=== PATIENT | female | born 1990 | race Caucasian/White ===

== ENCOUNTER 2019-03-04 10:05 | Inpatient (IN) ==
[2019-03-04] MEDS ORDERED: DINOPROSTONE 10 MG INSERT PV ONE (20:23)
[2019-03-04] MEDS ORDERED: OXYTOCIN 30 UNITS/500 ML BAG IV PRN (20:26)
[2019-03-04 21:13] LABS: Hematocrit (blood only) 39.3 % (37-47); Hemoglobin 13.2 g/dL (12.0-16.0); Mean Corpuscular Hemoglobin 31.4 pg (25-34); Mean Corpuscular Volume 93.6 fL (80-100); Mean Platelet Volume 10.5 fL (7.4-10.4); Platelet Count 289 K/uL (130-400); RDW Coefficient of Variation 12.8 % (11.5-14.5); White Blood Count 18.76 K/uL (4.8-10.8)
[2019-03-04] MEDS ORDERED: BUTORPHANOL TARTRATE 1 MG/ML VIAL IV PRN (21:13)
[2019-03-04 21:25] LABS: Mean Corpuscular Hgb Conc 33.6 g/dL (32-36)
[2019-03-05] MEDS ORDERED: miSOPROStoL 50 MCG TAB PO ONE (10:45)
[2019-03-05] MEDS: LACTATED RINGER'S 1,000 ML IV PRN ×3 (11:06→20:13)
[2019-03-05] MEDS ORDERED: OXYTOCIN 30 UNITS/500 ML BAG IV PRN (17:12)
[2019-03-05] MEDS ORDERED: fentaNYL citrate 100 MCG/2 ML VIAL ONE (21:41)
[2019-03-05] MEDS ORDERED: fentaNYL 2MCG/ML ROPIV 1.25MG/ML 100 ML BAG EPI ONE (21:42)
[2019-03-05] MEDS ORDERED: BUPIVACAINE 0.25% 30 ML VIAL ONE (21:42)
[2019-03-05] MEDS ORDERED: ePHEDrine sulfate 50 MG/ML AMP ONE (21:42)
--- NOTE | 2019-03-05 21:59 | Anesthesiology Consultation ---
Date of Service March 05, 2019 Assessment & Plan Chart Review Chart Review: Acceptable Risk for Surgery, Patient NOT seen in Pre Admission Testing and Acceptable Risk for Labor Epidural Consults Requested none ASA ASA3 Proposed Anesthesia Anesthesia Type: General, Labor Epidural and CSE Risk / Benefits Reviewed With: PT / POA / Parent / Guardian, Accepts Plan and Informed Consent Obtained History Height/Weight Height: 5 ft 5 in Weight: 121.109 kg Allergies Allergy/AdvReac Type Severity Reaction Status Date / Time No Known Allergies Verified 02/14/19 09:09 Medications Home Medications Medication Instructions Recorded Confirmed Last Taken PNV cmb#95-ferrous fumarate-FA 1 tab PO DAILY 02/14/19 03/04/19 03/04/19 [] Active Medications Generic Name Dose Route Start Last Admin Trade Name Freq PRN Reason Stop Dose Admin Lactated Ringer's 1,000 mls @ 125 mls/hr 03/04/19 20:26 03/05/19 21:40 Lr IV 03/06/19 20:25 999 mls/hr .Q8H PRN Infusion L&D Protocol Protocol Oxytocin 30 units in 500 mls @ 12 mls/hr 03/05/19 17:12 03/05/19 21:15 Pitocin IV 03/07/19 17:11 0.72 units/hr .Q24H PRN 12 mls/hr Labor Induction/Augmentation Titration Protocol 0.72 UNITS/HR NPO Date Last Intake of Fluids: 03/05/19 Time Last Intake of Fluids: 21:00 Date Last Intake of Solids: 03/05/19 Time Last Intake of Solids: 11:00 Past Medical History Medical History No known health problems Exercise / Class Metabolic Activity II 4-5 Yardwork/Stairs/Walk up hill Past Family History Family History Other Hypertension Past Surgical History Surgical History H/O wisdom tooth extraction History of tonsillectomy Past Anesthesia History No Hx of Anesthesia Complications and No Family Hx of Anesthesia Complications History of PONV No Hx of PONV and No Hx of Motion Sickness Social History Smoking Status: Former smoker tobacco type: cigarettes Smoking cigarettes per day: 4 Hx Alcohol Use: No Hx Substance Use: No substance use type: does not use Physical Exam Vital Signs Last Vital Signs Temp 36.6 C 03/05/19 21:15 Pulse 98 H 03/05/19 21:56 Resp 18 03/05/19 21:15 BP 138/84 03/05/19 18:58 Pulse Ox 96 03/05/19 21:56 Constitutional + morbidly obese ENMT Mouth: no dentition abnormality Thyromental Distance: < 3.5 Finger Breadths Mallampati Class: II Neck normal visual inspection and trachea midline; neck extension not limited Respiratory normal respiratory effort Auscultation: lungs clear to auscultation bilaterally Cardiovascular Rate/Rhythm: regular rate and regular rhythm Heart Sounds: no murmur Musculoskeletal Spine: lumbar spine normal to inspection; normal cervical ROM Neurologic moves all extremities Motor/Sensory: no sensory deficit Psychiatric Orientation: alert and oriented x 3 Testing Laboratory Results 03/04/19 21:05
[2019-03-05] MEDS ORDERED: NALOXONE HCL 1 MG in SODIUM CHLORIDE 0.9% 1000ML 1,000 ML IV PRN (22:28)
[2019-03-05] MEDS ORDERED: ONDANSETRON INJ 2 MG/ML 2 ML VIAL IV PRN (22:28)
[2019-03-05] MEDS ORDERED: PROMETHAZINE HCL 25 MG in SODIUM CHLORIDE 0.9% 50 ML IV PRN (22:28)
[2019-03-05] MEDS ORDERED: ePHEDrine sulfate 50 MG/ML AMP IV PRN (22:28)
[2019-03-05] MEDS ORDERED: fentaNYL 2MCG/ML ROPIV 1.25MG/ML 100 ML BAG EPI PRN (22:28)
[2019-03-05] MEDS ORDERED: NALBUPHINE HCL INJ 10 MG/ML AMP IV PRN (22:28)
[2019-03-05] MEDS ORDERED: DiphenhydrAMINE HCL 50 MG/ML VIAL IV PRN (22:28)
[2019-03-05] MEDS ORDERED: NALOXONE HCL 0.4 MG/1 ML VIAL/CARP IV PRN (22:28)
[2019-03-06] MEDS ORDERED: SUPERCREAM 0.870% 15 GM JAR EXT PRN (04:49)
[2019-03-06] MEDS ORDERED: HYDROCORTISONE ACETATE 25 MG SUPP PR PRN (04:49)
[2019-03-06] MEDS ORDERED: bisacodyL 10 MG SUPP PR PRN (04:49)
[2019-03-06] MEDS ORDERED: ACETAMINOPHEN 325 MG TAB PO PRN (04:49)
[2019-03-06] MEDS ORDERED: OXYTOCIN 30 UNITS/500 ML BAG IV PRN (04:49)
[2019-03-06] MEDS ORDERED: BENZOCAINE 20% AER SPR 82.5 GM CAN EXT PRN (04:49)
[2019-03-06] MEDS ORDERED: DIPHTHERIA/TETANUS/PERTUSSIS 0.5 ML SYR/VIAL IM ONE (04:49)
[2019-03-06] MEDS ORDERED: ACETAMINOPHEN W/CODEINE #3 1 TAB PO PRN (04:49)
[2019-03-06] MEDS ORDERED: METHYLERGONOVINE MALEATE 0.2 MG/ML AMP IM ONE (04:49)
[2019-03-06] MEDS ORDERED: OXYCODONE/ACETAMINOPHEN 5mg/325mg TAB PO PRN (04:49)
--- NOTE | 2019-03-06 07:02 | Delivery Summary ---
DATE OF OPERATION: 03/06/2019 Mrs. Verduzco is a 1, para 1. Her has been complicated by toxemia, which started about 35 weeks' gestation. Her blood type is B positive. She is group beta strep negative. She started to develop elevated blood pressure. She was taken off of her work, placed at bed rest. She responded nicely, and as long as she had bed rest and decreased activity, her proteinuria resolved and her blood pressures ran in the normal range. We elected to induce her labor at 38 weeks due to her diagnosis of toxemia. She was brought in, given a Cervidil tape, then 1 dose of p.o. Cytotec and then eventually she was switched to IV Pitocin. Membranes were ruptured surgically. Fluid was clear. She had an epidural at about 5 cm. She went to full dilatation, and under 20 minutes, pushed out a live female infant via direct occiput anterior position over an intact perineum. Apgars were 8 and 9, respectively. Cord was short, was clamped and cut by the father. Cord blood was taken. With IV Pitocin running, the placenta was removed intact. Inspection of the perineum revealed a superficial laceration at 6 o'clock and a very small laceration at about 3 o'clock. The 3 o'clock laceration was repaired with a [id number] suture of chromic catgut and the 6 o'clock was repaired with a running 3-0 chromic. Following this, vaginal examination revealed no hematoma formation. She was also given a shot of Methergine. Estimated blood loss 100 mL . Placenta looked small, was sent for exam. I attest to the content of the Intraoperative Record and any orders documented therein. Any exception s are noted below.
--- NOTE | 2019-03-06 07:17 | Anesthesia Procedure Note ---
Date of Service March 06, 2019 Anesthesia Post Epidural Note Vital Signs Vital Signs: Temp Pulse Resp BP Pulse Ox 37.5 C 76 18 132/70 98 03/06/19 06:40 03/06/19 06:48 03/06/19 06:40 03/06/19 06:48 03/06/19 04:26 Notes Mental Status: alert / awake / arousable and participated in evaluation Patient Amnestic to Procedure: Yes Nausea / Vomiting: adequately controlled Pain: adequately controlled Airway Patency, RR, SpO2: stable & adequate BP & HR: stable & adequate Hydration State: stable & adequate Anesthetic Complications: no major complications apparent and Pt Satisfied with anesthetic care
[2019-03-06] MEDS: IBUPROFEN 600 MG TAB PO PRN (17:11)
[2019-03-06] MEDS: DOCUSATE SODIUM 100 MG CAP PO SCH (21:30)
[2019-03-07] MEDS: IBUPROFEN 600 MG TAB PO PRN ×2 (01:06→08:25)
[2019-03-07 07:12] LABS: Hematocrit (blood only) 37.1 % (37-47); Hemoglobin 12.5 g/dL (12.0-16.0); Mean Corpuscular Hemoglobin 31.5 pg (25-34); Mean Corpuscular Hgb Conc 33.7 g/dL (32-36); Mean Corpuscular Volume 93.5 fL (80-100); Mean Platelet Volume 10.5 fL (7.4-10.4); Platelet Count 266 K/uL (130-400); RDW Coefficient of Variation 13.1 % (11.5-14.5); RDW Standard Deviation 45.1 fL (36.4-46.3); Red Blood Count 3.97 M/uL (4.2-5.4); White Blood Count 13.14 K/uL (4.8-10.8)
[2019-03-07] MEDS: PRENATAL VITAMIN 1 TAB PO SCH (08:24)
[2019-03-07] MEDS: FERROUS SULFATE 325 MG TAB PO SCH (08:24)
[2019-03-07] MEDS: DOCUSATE SODIUM 100 MG CAP PO SCH ×2 (08:25→20:27)
--- NOTE | 2019-03-07 09:21 | Obstetrical Progress Note ---
Date of Service March 07, 2019 Physical Exam Physical Exam: abdomen soft and non tender vaginal bleeding scant hgb 12.5 no calf tenderness ambulating well Results & Data Vital Signs (Past 12 Hours) Vital Signs Temp Pulse Resp BP Pulse Ox 03/07/19 04:30 36.6 C 74 17 133/79 97 03/07/19 00:50 36.7 C 81 16 127/78 96
[2019-03-07] MEDS ORDERED: bisacodyL 5 MG TABEC PO SCH (20:00)
[2019-03-08 07:05] LABS: Hematocrit (blood only) 38.1 % (37-47)
[2019-03-08] MEDS: FERROUS SULFATE 325 MG TAB PO SCH (10:33)
[2019-03-08] MEDS: PRENATAL VITAMIN 1 TAB PO SCH (10:33)
[2019-03-08] MEDS: DOCUSATE SODIUM 100 MG CAP PO SCH (10:33)
--- NOTE | 2019-03-08 11:13 | Obstetrical Progress Note ---
Date of Service March 08, 2019 Physical Exam Physical Exam: abdomen soft and non tender ambulating well no calf tenderness vaginal bleeding scant hgb 13.0 Results & Data Vital Signs (Past 12 Hours) Vital Signs Temp Pulse Resp BP BP 03/08/19 08:30 36.9 C 91 H 20 125/83 03/08/19 00:30 36.6 C 84 18 122/81
== END 2019-03-08 12:30 | disposition home or self-care (01) | DRG 807 ==
LOC: 4S1 19:08 → 4S2 03-06 08:46

== ENCOUNTER 2022-05-23 07:52 | Inpatient (IN) ==
[2022-05-23] MEDS ORDERED: miSOPROStoL 50 MCG TAB PO ONE ×2 (08:56→13:26)
[2022-05-23] MEDS ORDERED: PENICILLIN G POTASSIUM 6 MU in DEXTROSE 5% 250 ML IV STA (08:56)
[2022-05-23] MEDS ORDERED: LIDOCAINE 1% LOCAL 20 ML VIAL INFIL PRN (08:56)
[2022-05-23 09:25] LABS: Hematocrit (blood only) 38.9 % (37.0-47.0); Hemoglobin 13.4 g/dl (12.0-16.0); Mean Corpuscular Hemoglobin 30.4 pg (25.0-34.0); Mean Corpuscular Hgb Conc 34.4 g/dL (32.0-36.0); Mean Corpuscular Volume 88.2 fL (80.0-100.0); Mean Platelet Volume 10.5 fL (9.4-12.4); Platelet Count 241 K/uL (130-400); RDW Coefficient of Variation 13.1 % (11.5-14.5); RDW Standard Deviation 41.9 fL (36.4-46.3); Red Blood Count 4.41 M/uL (4.20-5.40)
[2022-05-23] MEDS: LACTATED RINGER'S 1,000 ML IV PRN ×2 (09:48→21:17)
[2022-05-23] MEDS: PENICILLIN G POTASSIUM 3 MU in DEXTROSE 5% 100 ML IV PRN ×3 (13:44→22:03)
[2022-05-23] MEDS ORDERED: OXYTOCIN 30 UNITS/500 ML BAG IV PRN (21:01)
[2022-05-23] MEDS ORDERED: ePHEDrine sulfate 50 MG/ML AMP ONE (23:26)
[2022-05-23] MEDS ORDERED: fentaNYL citrate PF 100 MCG/2 ML VIAL ONE (23:26)
[2022-05-23] MEDS ORDERED: fentaNYL 2MCG/ML ROPIVACAINE 1.25MG/ML 100 ML BAG EPI ONE (23:27)
[2022-05-23] MEDS ORDERED: LIDOCAINE 2%/EPINEPHRINE 1:200,000 20 ML PF ONE (23:27)
[2022-05-23] MEDS ORDERED: BUPIVACAINE 0.25% PF 30 ML VIAL ONE (23:27)
[2022-05-23] MEDS ORDERED: SODIUM CHLORIDE 0.9% PF INJ 10 ML VIAL ONE (23:27)
--- NOTE | 2022-05-24 00:19 | Anesthesiology Consultation ---
Date of Service May 24, 2022 Assessment & Plan Chart Review Chart Review: Patient NOT seen in Pre Admission Testing and Acceptable Risk for Labor Epidural Consults Requested none ASA ASA2 Proposed Anesthesia Anesthesia Type: Labor Epidural Risk / Benefits Reviewed With: PT / POA / Parent / Guardian, Accepts Plan and Informed Consent Obtained History Height/Weight Height: 5 ft 5 in Weight: 131.542 kg Allergies Allergy/AdvReac Type Severity Reaction Status Date / Time No Known Allergies Verified 05/23/22 08:29 Medications Home Medications Medication Instructions Recorded Confirmed Last Taken vit no.95-ferrous 1 tab PO DAILY 02/14/19 05/23/22 05/22/22 12:00 fumarate 28 mg-folic acid 800 mcg tablet () Active Medications Generic Name Dose Route Start Last Admin Trade Name Freq PRN Reason Stop Dose Admin Penicillin G Potassium 3 mu/ 106 mls @ 100 mls/hr 05/23/22 11:56 05/23/22 23:06 Dextrose IV 06/02/22 11:55 Infused Q4H PRN Infusion GBS(+) Until Delivery Lactated Ringer's 1,000 mls @ 125 mls/hr 05/23/22 08:56 05/23/22 23:50 Lr IV 05/25/22 08:55 125 mls/hr .Q8H PRN Infusion L&D Protocol Protocol Oxytocin 30 units in 500 mls @ 8 mls/hr 05/23/22 21:01 05/23/22 23:00 Pitocin IV 05/25/22 21:00 0.48 units/hr .Q24H PRN 8 mls/hr Labor Induction/Augmentation Titration Protocol 0.48 UNITS/HR Past Medical History Medical History No known health problems Exercise / Class Metabolic Activity II 4-5 Yardwork/Stairs/Walk up hill Past Family History Family History Other Hypertension Past Surgical History Surgical History H/O wisdom tooth extraction History of tonsillectomy Past Anesthesia History No Hx of Anesthesia Complications and No Family Hx of Anesthesia Complications History of PONV No Hx of PONV and No Hx of Motion Sickness Social History Smoking Status: Never smoker tobacco type: cigarettes Smoking cigarettes per day: 4 Hx Alcohol Use: No Hx Substance Use: No substance use type: does not use Physical Exam Vital Signs Last Vital Signs Temp 36.5 C 05/23/22 22:59 Pulse 86 05/24/22 00:18 Resp 18 05/23/22 22:59 BP 115/58 L 05/24/22 00:18 Pulse Ox 97 05/24/22 00:13 ENMT Mouth: no dentition abnormality Thyromental Distance: > or= 3.5 Finger Breadths Mallampati Class: II Neck normal visual inspection Respiratory normal respiratory effort Auscultation: lungs clear to auscultation bilaterally Cardiovascular Rate/Rhythm: regular rate and regular rhythm Psychiatric Orientation: alert Testing Laboratory Results 05/23/22 09:14 Blood Type B Positive 05/23/22 09:14 Antibody Screen NEGATIVE 05/23/22 09:14
[2022-05-24] MEDS ORDERED: NALOXONE HCL 0.4 MG/1 ML VIAL/CARP IV PRN (00:20)
[2022-05-24] MEDS ORDERED: NALBUPHINE HCL INJ 10 MG/ML AMP IV PRN (00:20)
[2022-05-24] MEDS ORDERED: diphenhydrAMINE 50 MG/ML VIAL IV PRN (00:20)
[2022-05-24] MEDS ORDERED: NALOXONE HCL 1 MG in SODIUM CHLORIDE 0.9% 1000ML 1,000 ML IV PRN (00:20)
[2022-05-24] MEDS ORDERED: ONDANSETRON INJ 2 MG/ML 2 ML VIAL IV PRN (00:20)
[2022-05-24] MEDS ORDERED: fentaNYL 2MCG/ML ROPIVACAINE 1.25MG/ML 100 ML BAG EPI PRN (00:20)
[2022-05-24] MEDS ORDERED: ePHEDrine sulfate 50 MG/ML AMP IV PRN (00:20)
[2022-05-24] MEDS: LACTATED RINGER'S 1,000 ML IV PRN (02:00)
[2022-05-24] MEDS: PENICILLIN G POTASSIUM 3 MU in DEXTROSE 5% 100 ML IV PRN (02:00)
[2022-05-24] MEDS: OXYTOCIN 30 UNITS/500 ML BAG IV PRN ×2 (04:40→06:49)
[2022-05-24] MEDS ORDERED: miSOPROStoL 200 MCG TAB ONE (04:45)
[2022-05-24] MEDS ORDERED: miSOPROStoL 200 MCG TAB PR ONE (04:50)
[2022-05-24] MEDS ORDERED: OXYTOCIN 30 UNITS/500 ML BAG IV PRN (04:50)
[2022-05-24] MEDS ORDERED: BENZOCAINE 20% AER SPR 82.5 GM CAN EXT PRN (04:50)
[2022-05-24] MEDS ORDERED: ACETAMINOPHEN 325 MG TAB PO PRN (04:50)
[2022-05-24] MEDS ORDERED: ACETAMINOPHEN W/CODEINE #3 1 TAB PO PRN (04:50)
[2022-05-24] MEDS ORDERED: DIPHTHERIA/TETANUS/PERTUSSIS 0.5mL SYR/VIAL (Age 7+yrs) IM ONE (04:50)
[2022-05-24] MEDS ORDERED: oxyCODONE/ACETAMINOPHEN 5mg/325mg TAB PO PRN (04:50)
[2022-05-24] MEDS ORDERED: HYDROCORTISONE ACETATE 25 MG SUPP PR PRN (04:50)
--- NOTE | 2022-05-24 05:58 | Operative Report (OR) ---
DELIVERY NOTE: She is 2, para 2, blood type is B positive. Group B strep positive. She had had hypertension with her first . She was placed on baby aspirin during this , wa s stopped at about 36 weeks. In the last week or two, she had elevation of blood pressure, which was managed by decreased activity. She was brought in for induction at 40 weeks. She was group B strep positive. She was immediately started on antibiotics and given p.o. Cytotec. P.o. Cytotec was later followed by IV Pitocin. Then she received an epidural for pain control. At about 5 to 6 cm, membrane s were ruptured surgically. Fluid was clear. Pitocin was continued to be advanced. She went to ful l dilatation, pushed out a live male infant with about 4 pushes, direct occiput anterior position ove r an intact perineum. Nuchal cord was reduced around the neck prior to delivery. Shoulders were del ivered without difficulty. Cord was allowed to pulse for 1 minute, then was clamped and cut by the f ather. Cord blood was taken. With IV Pitocin running, the placenta was removed intact. There was a little bit of moderate amount of bleeding following this. There was a small first-degree laceration of the perineum at 7 o'clock in the vaginal opening and this was repaired with a running 3-0 chromic and we used 800 mcg Cytotec rectally to help control the bleeding. Estimated blood loss was 200 mL. Apgars deferred to the nurses. Job ID: [id number]
--- NOTE | 2022-05-24 07:49 | Anesthesia Procedure Note ---
Date of Service May 24, 2022 Anesthesia Post Epidural Note Vital Signs Vital Signs: Temp Pulse Resp BP Pulse Ox 36.8 C 85 18 130/69 96 05/24/22 07:00 05/24/22 07:30 05/24/22 07:00 05/24/22 07:30 05/24/22 04:58 Notes Mental Status: alert / awake / arousable and participated in evaluation Nausea / Vomiting: adequately controlled Pain: adequately controlled Airway Patency, RR, SpO2: stable & adequate BP & HR: stable & adequate Hydration State: stable & adequate Neuraxial Anesthesia: was administered and sensory block is resolving Anesthetic Complications: no major complications apparent and Pt Satisfied with anesthetic care Epidural: Removed without complications and With tip intact
[2022-05-24] MEDS ORDERED: PRENATAL VITAMIN 1 TAB PO SCH (08:00)
[2022-05-24] MEDS: IBUPROFEN 600 MG TAB PO PRN (14:39)
[2022-05-24] MEDS: DOCUSATE SODIUM 100 MG CAP PO SCH (20:44)
[2022-05-25] MEDS: IBUPROFEN 600 MG TAB PO PRN (04:03)
[2022-05-25 06:15] LABS: Hematocrit (blood only) 34.7 % (37.0-47.0); Hemoglobin 11.7 g/dl (12.0-16.0); Mean Corpuscular Hemoglobin 30.4 pg (25.0-34.0); Mean Corpuscular Hgb Conc 33.7 g/dL (32.0-36.0); Mean Corpuscular Volume 90.1 fL (80.0-100.0); Mean Platelet Volume 10.7 fL (9.4-12.4); Platelet Count 211 K/uL (130-400); RDW Coefficient of Variation 13.2 % (11.5-14.5); RDW Standard Deviation 43.8 fL (36.4-46.3); Red Blood Count 3.85 M/uL (4.20-5.40); White Blood Count 11.52 K/ul (4.8-10.8)
[2022-05-25] MEDS: DOCUSATE SODIUM 100 MG CAP PO SCH (07:39)
--- NOTE | 2022-05-25 09:17 | Obstetrical Progress Note ---
Date of Service May 25, 2022 Assessment & Plan Admission and Anticipated Discharge Date Admission Date: May 23, 2022 Subjective abdomen soft and non tender no calf tenderness ambulating well vaginal bleeding scant hgb 11.7 Results & Data Vital Signs (Past 12 Hours) Vital Signs Temp Pulse Resp BP Pulse Ox O2 Del Method 05/25/22 08:10 122/80 05/25/22 07:30 36.7 C 68 18 163/86 H 97 Room Air 05/25/22 04:00 36.8 C 79 18 137/90 05/24/22 23:50 36.7 C 71 18 146/91 H
[2022-05-25] MEDS ORDERED: bisacodyL 5 MG TABEC PO SCH (20:00)
[2022-05-26] MEDS ORDERED: bisacodyL 10 MG SUPP PR PRN (04:50)
== END 2022-05-25 12:51 | disposition home or self-care (01) | DRG 807 ==
LOC: 4S1 07:52 → 4E2 05-24 09:25